=== PATIENT | female | born 1990 | race Caucasian/White ===

== ENCOUNTER 2016-07-15 21:30 | Emergency (ER) | payer OTHER ==
[~2016-07-15] VITALS: Ht 162.6 cm; Wt 91.2 kg
[2016-07-15 21:38] VITALS: BP 122/69
--- NOTE | 2016-07-15 21:44 | NUR ---
PT TAKEN TO BED 8
--- NOTE | 2016-07-15 21:45 | NUR ---
PT C/O RIGHT KNEE PAIN
--- NOTE | 2016-07-15 21:59 | NUR ---
PT RETURN FROM XRAY
--- NOTE | 2016-07-15 22:07 | NUR ---
Dr. Chua evaluating patient at bedside.
[2016-07-15] MEDS ORDERED: HYDROcodone/APAP 5/325 MG 1 TAB TAB PO ONE (22:10)
[2016-07-15] MEDS ORDERED: KETOROLAC 30 MG/ML VIAL IM ONE (22:10)
--- NOTE | 2016-07-15 22:24 | NUR ---
Patient discharged with v/s stable. Written and verbal after care instructions given and explained. Patient alert, oriented and verbalized understanding of instructions. Ambulatory with steady gait. All questions addressed prior to discharge. ID band removed. Patient advised to follow up with PMD. Rx of Tylenol #3, Naprosyn 500mg given. Patient educated on indication of medication including possible reaction and side effects. Opportunity to ask questions provided and answered.
[2016-07-15 22:57] VITALS: BP 121/68
== END 2016-07-15 22:27 | disposition home or self-care (01) ==
LOC: MED 21:30
DX: M76.51 Patellar tendinitis, right knee (principal)
CPT/HCPCS: 29505; 73562; 96372; 99284; J1885

== ENCOUNTER 2017-02-17 13:08 | Emergency (ER) | payer OTHER ==
[~2017-02-17] VITALS: Ht 162.6 cm; Wt 89.4 kg
[2017-02-17 13:15] VITALS: BP 134/69
[2017-02-17 15:29] LABS: BASOPHILS # (AUTO) 0.2 K/uL (0.00-0.22); BASOPHILS % (AUTO) 2.2 % (0.0-2.0); EOSINOPHILS # (AUTO) 0.3 K/uL (0-0.4); EOSINOPHILS % (AUTO) 3.5 % (0.0-4.0); HEMATOCRIT 34.1 % (36-48); HEMOGLOBIN 11.5 g/dL (12.0-16.0); LYMPHOCYTES % (AUTO) 34.2 % (20.5-51.1); MEAN CORPUSCULAR HEMOGLOBIN 28 pg (27-31); MEAN CORPUSCULAR HGB CONC 34 g/dL (33-37); MEAN CORPUSCULAR VOLUME 83 fL (80-94); MONOCYTES # (AUTO) 0.6 K/uL (0.8-1.0); MONOCYTES % (AUTO) 6.7 % (1.7-9.3); NEUTROPHILS # (AUTO) 4.7 K/uL (1.8-7.7); NEUTROPHILS % (AUTO) 53.4 % (42.2-75.2); PLATELET COUNT (AUTO) 314 K/uL (140-450); RED BLOOD CELL COUNT(AUTO) 4.11 MIL/uL (4.20-5.40); RED CELL DISTRIBUTION WIDTH 12.8 % (11.6-13.7); WHITE BLOOD COUNT (AUTO) 8.8 K/uL (4.8-10.8)
--- NOTE | 2017-02-17 15:50 | NUR ---
STOOD IN FOR LAVELLE LUCERO DURING PELVIC EXAM
[2017-02-17] MEDS ORDERED: KETOROLAC 60 MG/2 ML VIAL IM ONE (16:30)
--- NOTE | 2017-02-17 16:41 | NUR ---
Patient discharged with v/s stable. Written and verbal after care instructions given and explained. Patient verbalized understanding. Ambulatory with steady gait. All questions addressed prior to discharge. Advised to follow up with PMD.
[2017-02-17 16:47] VITALS: BP 118/65
== END 2017-02-17 16:41 | disposition home or self-care (01) ==
LOC: MED 13:08
DX: N93.8 Other specified abnormal uterine and vaginal bleeding (principal); N94.6 Dysmenorrhea, unspecified
CPT/HCPCS: 36415; 76830; 84702; 85025; 96372; 99285; J1885

== ENCOUNTER 2017-05-12 18:49 | Emergency (ER) | payer OTHER ==
[~2017-05-12] VITALS: Ht 167.6 cm; Wt 89.9 kg
[2017-05-12 19:04] VITALS: BP 123/67
--- NOTE | 2017-05-12 20:15 | NUR ---
PT IS 26 YEARS OLD FEMALE. CHIEF COMPLAIN WITH CRAMPING SUPRAPUBIC PAIN RADIATED TO LOW BACK PAIN 6/10 X 1 DAY. NO PAIN WITH URINATION.PT STATED HER URINE IS CLEAR, YELLOW. PT REPORT SHE HAD POSITIVE RESULT FOR TEST. ER DR MEJIA. WILL CONTINUE TO MONITOR.
[2017-05-12] MEDS ORDERED: NACL 0.9% 1,000 ML IV ONE (20:25)
[2017-05-12] MEDS ORDERED: MORPHINE SULFATE 4 MG/ML SYR IVP ONE (20:25)
[2017-05-12 20:59] LABS: BASOPHILS # (AUTO) 0.2 K/uL (0.00-0.22); BASOPHILS % (AUTO) 1.4 % (0.0-2.0); EOSINOPHILS # (AUTO) 0.2 K/uL (0-0.4); EOSINOPHILS % (AUTO) 1.5 % (0.0-4.0); HEMATOCRIT 38.1 % (36-48); HEMOGLOBIN 12.4 g/dL (12.0-16.0); LYMPHOCYTES % (AUTO) 25.3 % (20.5-51.1); MEAN CORPUSCULAR HEMOGLOBIN 28 pg (27-31); MEAN CORPUSCULAR HGB CONC 32 g/dL (33-37); MEAN CORPUSCULAR VOLUME 85 fL (80-94); MONOCYTES # (AUTO) 0.7 K/uL (0.8-1.0); MONOCYTES % (AUTO) 6.1 % (1.7-9.3); NEUTROPHILS # (AUTO) 7.7 K/uL (1.8-7.7); NEUTROPHILS % (AUTO) 65.7 % (42.2-75.2); PLATELET COUNT (AUTO) 335 K/uL (140-450); RED BLOOD CELL COUNT(AUTO) 4.47 MIL/uL (4.20-5.40); RED CELL DISTRIBUTION WIDTH 13.7 % (11.6-13.7); WHITE BLOOD COUNT (AUTO) 11.8 K/uL (4.8-10.8)
[2017-05-12 21:40] LABS: ANION GAP 12.2 (8-16); CARBON DIOXIDE 26.6 mmol/L (21-32); CREATININE 0.8 mg/dL (0.6-1.3); POTASSIUM 3.8 mmol/L (3.5-5.1)
[2017-05-12 21:41] LABS: ALBUMIN 3.3 g/dL (3.4-5.0); TOTAL BILIRUBIN 0.1 mg/dL (0.0-1.0)
--- NOTE | 2017-05-12 22:05 | NUR ---
US AT BEDSIDE AT THIS TIME.
[2017-05-12 22:23] LABS: APPEARANCE,URINE CLEAR (CLEAR); BILIRUBIN,URINE NEGATIVE (NEGATIVE); BLOOD, URINE NEGATIVE (NEGATIVE); COLOR,URINE YELLOW (YELLOW); LEUKOCYTE ESTERASE ,URINE NEGATIVE (NEGATIVE); NITRITE, URINE NEGATIVE (NEGATIVE); PH,URINE 5.5 (5.0-9.0); UGLUCOSE NEGATIVE (NEGATIVE)
--- NOTE | 2017-05-12 23:55 | NUR ---
US FOR APPENDIX AT THE BEDSIDE.
[2017-05-13 00:55] VITALS: BP 105/65
== END 2017-05-13 00:40 | disposition home or self-care (01) ==
LOC: MED 18:49
DX: O26.891 Other specified pregnancy related conditions, first trimester (principal); R10.30 Lower abdominal pain, unspecified; M54.9 Dorsalgia, unspecified; Z90.49 Acquired absence of other specified parts of digestive tract
CPT/HCPCS: 36415; 76705; 76801; 80053; 81003; 82150; 83690; 84702; 84703; 85025; 96361; 96374; 99285; J2270; J7030; Q0092

== ENCOUNTER 2017-06-08 19:44 | Emergency (ER) | payer OTHER ==
[~2017-06-08] VITALS: Ht 162.6 cm; Wt 90.3 kg
[2017-06-08 19:50] VITALS: BP 119/80
--- NOTE | 2017-06-08 19:50 | NUR ---
26/F W C/O VAGINAL BLEEDING X 20 MINS AGO, REPORTS "GUSH OF BLOOD" AND ABD CRAMPING, DENIES CLOTS OR ACTIVE BLEEDING AT THIS TIME. 11 WEEKS , . LMP 03/03/17 DENIES PMH/RX/OTC
--- NOTE | 2017-06-08 20:30 | NUR ---
US CALLED, PER RADIOLOGY US ON THE FLOOR AT THIS TIME
[2017-06-08 20:36] LABS: BASOPHILS # (AUTO) 0.2 K/uL (0.00-0.22); BASOPHILS % (AUTO) 1.8 % (0.0-2.0); EOSINOPHILS # (AUTO) 0.2 K/uL (0-0.4); EOSINOPHILS % (AUTO) 1.4 % (0.0-4.0); HEMATOCRIT 34.1 % (36-48); HEMOGLOBIN 11.5 g/dL (12.0-16.0); LYMPHOCYTES # (AUTO) 3.2 K/uL (2.5-16.5); LYMPHOCYTES % (AUTO) 27.4 % (20.5-51.1); MEAN CORPUSCULAR HEMOGLOBIN 29 pg (27-31); MEAN CORPUSCULAR HGB CONC 34 g/dL (33-37); MEAN CORPUSCULAR VOLUME 85.1 fL (80-94); MONOCYTES # (AUTO) 0.6 K/uL (0.8-1.0); MONOCYTES % (AUTO) 5.5 % (1.7-9.3); NEUTROPHILS # (AUTO) 7.6 K/uL (1.8-7.7); NEUTROPHILS % (AUTO) 63.9 % (42.2-75.2); PLATELET COUNT (AUTO) 296 K/uL (140-450); RED BLOOD CELL COUNT(AUTO) 4.01 MIL/uL (4.20-5.40); RED CELL DISTRIBUTION WIDTH 13.6 % (11.6-13.7); WHITE BLOOD COUNT (AUTO) 11.8 K/uL (4.8-10.8)
[2017-06-08 20:49] LABS: APPEARANCE,URINE CLEAR (CLEAR); BILIRUBIN,URINE NEGATIVE (NEGATIVE); BLOOD, URINE 3+ (NEGATIVE); COLOR,URINE YELLOW (YELLOW); LEUKOCYTE ESTERASE ,URINE NEGATIVE (NEGATIVE); NITRITE, URINE NEGATIVE (NEGATIVE); UGLUCOSE NEGATIVE (NEGATIVE)
[2017-06-08 20:51] LABS: ANION GAP 16.7 (8-16); CARBON DIOXIDE 21.7 mmol/L (21-32); CREATININE 0.7 mg/dL (0.6-1.3); POTASSIUM 3.4 mmol/L (3.5-5.1)
[2017-06-08 20:52] LABS: RBC,URINE 20-50 /HPF (0-5); WBC,URINE 0-5 (RARE) /HPF (0-5)
--- NOTE | 2017-06-08 21:00 | NUR ---
Patient appears to be resting comfortably in bed. Vital Signs within normal limits. Respirations even and unlabored. no active bleeding reported
[2017-06-08 21:01] LABS: ALBUMIN 2.8 g/dL (3.4-5.0); TOTAL BILIRUBIN 0.2 mg/dL (0.0-1.0)
[2017-06-08 22:28] VITALS: BP 118/93
[2017-06-11 06:20] LABS: CHLAMYDIA TRACHOMATIS AMP DNA Negative (Negative)
== END 2017-06-08 22:24 | disposition home or self-care (01) ==
LOC: MED 19:44
DX: O20.0 Threatened abortion (principal); E87.6 Hypokalemia; D64.9 Anemia, unspecified; D72.829 Elevated white blood cell count, unspecified; Z3A.11 11 weeks gestation of pregnancy
CPT/HCPCS: 36415; 76817; 80053; 81001; 81025; 84702; 85025; 86900; 86901; 87210; 99285; Q0092; 87491

== ENCOUNTER 2017-06-11 07:25 | Emergency (ER) | payer OTHER ==
[~2017-06-11] VITALS: Ht 162.6 cm; Wt 89.1 kg
[2017-06-11 07:31] VITALS: BP 121/79
--- NOTE | 2017-06-11 07:37 | NUR ---
PT AMBULATED TO BED 1
--- NOTE | 2017-06-11 07:40 | NUR ---
26 YO F BIB self for a recheck for vaginal bleeding. Pt denies vaginal bleeding at this time. Reports no bleeding x 2 days. A&O x 4. GCS 15. Ambulatory w/ steady gait. Pt denies any pain/discomfort at this time. Pt denies having an OB established at this time. Pt educated on importance of Ob checks regulalry throughout the . States she received a referral for an OB on friday. Pt denies taking prenatals at this time. PT educated on the importance of taking prenatals (Folic acid) throughout the , especially the first few weeks of development. AGNES Rivas notified of pt status. Pt needs met at this time. Will continue to monitor. Addendum: [email or web address] 26 [facility] for a recheck for vaginal bleeding. A1. Pt denies vaginal bleeding at this time. Reports no bleeding x 2 days. A&O x 4. GCS 15. Ambulatory w/ steady gait. Pt denies any pain/discomfort at this time. Pt denies having an OB established at this time. Pt educated on importance of Ob checks regulalry throughout the . States she received a referral for an OB on friday. Pt denies taking prenatals at this time. PT educated on the importance of taking prenatals (Folic acid) throughout the , especially the first few weeks of development. AGNES Rivas notified of pt status. Pt needs met at this time. Will continue to monitor.
--- NOTE | 2017-06-11 08:04 | NUR ---
Patient discharged with v/s stable. Written and verbal after care instructions given and explained. Patient alert, oriented and verbalized understanding of instructions. Ambulatory with steady gait. All questions addressed prior to discharge. ID band removed. Patient advised to follow up with PMD. Rx of Prenatals given. Patient educated on indication of medication including possible reaction and side effects. Opportunity to ask questions provided and answered.
[2017-06-11 08:08] VITALS: BP 121/79
== END 2017-06-11 08:04 | disposition home or self-care (01) ==
LOC: MED 07:25
DX: Z34.01 Encounter for supervision of normal first pregnancy, first trimester (principal)
CPT/HCPCS: 81002; 81025; 99282

== ENCOUNTER 2017-07-01 21:26 | Emergency (ER) | payer OTHER ==
[~2017-07-01] VITALS: Ht 162.6 cm; Wt 92.1 kg
[2017-07-01 21:37] VITALS: BP 118/63
--- NOTE | 2017-07-01 21:50 | NUR ---
PATIENT PRESENTS TO ED WITH C/O VAGINAL BLEEDING X 2 DAYS. ABDOMINAL PAIN SINCE FRIDAY. PT.A1 IUP 14 WKS. DENIES MED HX. PT DENIES N/V/D; SKIN IS PINK/WARM/DRY; AAOX4 WITH EVEN AND STEADY GAIT; LUNGS CLEAR BL; HR EVEN AND REGULAR; PT DENIES ANY FEVER, CP, SOB, OR COUGH AT THIS TIME; PATIENT STATES PAIN OF 7/10 AT THIS TIME; VSS; PATIENT POSITIONED FOR COMFORT; HOB ELEVATED; BEDRAILS UP X2; BED DOWN. ER MD MADE AWARE OF PT STATUS.
[2017-07-01 21:53] LABS: BASOPHILS # (AUTO) 0.1 K/uL (0.00-0.22); BASOPHILS % (AUTO) 0.9 % (0.0-2.0); EOSINOPHILS # (AUTO) 0.2 K/uL (0-0.4); EOSINOPHILS % (AUTO) 1.6 % (0.0-4.0); HEMATOCRIT 33.2 % (36-48); HEMOGLOBIN 11.2 g/dL (12.0-16.0); LYMPHOCYTES % (AUTO) 27.5 % (20.5-51.1); MEAN CORPUSCULAR HEMOGLOBIN 29 pg (27-31); MEAN CORPUSCULAR HGB CONC 34 g/dL (33-37); MEAN CORPUSCULAR VOLUME 84.2 fL (80-94); MONOCYTES # (AUTO) 0.7 K/uL (0.8-1.0); MONOCYTES % (AUTO) 6.2 % (1.7-9.3); NEUTROPHILS % (AUTO) 63.8 % (42.2-75.2); PLATELET COUNT (AUTO) 310 K/uL (140-450); RED BLOOD CELL COUNT(AUTO) 3.94 MIL/uL (4.20-5.40); RED CELL DISTRIBUTION WIDTH 14.1 % (11.6-13.7); WHITE BLOOD COUNT (AUTO) 10.9 K/uL (4.8-10.8)
[2017-07-01 21:59] LABS: ANION GAP 15.6 (8-16); CARBON DIOXIDE 20.7 mmol/L (21-32); CREATININE 0.6 mg/dL (0.6-1.3); POTASSIUM 3.3 mmol/L (3.5-5.1)
--- NOTE | 2017-07-01 22:22 | NUR ---
PT TAKEN TO ULTRASOUND FROM [facility]
--- NOTE | 2017-07-01 22:36 | NUR ---
PT RETURN FROM ULTRASOUND TO BED 11
[2017-07-01 23:08] LABS: APPEARANCE,URINE SL CLOUDY (CLEAR); BILIRUBIN,URINE NEGATIVE (NEGATIVE); BLOOD, URINE TRACE-I (NEGATIVE); COLOR,URINE YELLOW (YELLOW); LEUKOCYTE ESTERASE ,URINE TRACE (NEGATIVE); NITRITE, URINE NEGATIVE (NEGATIVE); UGLUCOSE NEGATIVE (NEGATIVE)
[2017-07-01 23:22] LABS: RBC,URINE 3-10 (FEW) /HPF (0-5)
[2017-07-01] MEDS ORDERED: ACETAMINOPHEN EXTRA STRENGTH 500 MG TAB PO ONE (23:30)
[2017-07-01 23:59] VITALS: BP 122/71
--- NOTE | 2017-07-01 23:59 | NUR ---
Patient discharged with v/s stable. Written and verbal after care instructions given and explained. Patient alert, oriented and verbalized understanding of instructions. Ambulatory with steady gait. All questions addressed prior to discharge. ID band removed. Patient advised to follow up with PMD. Rx of TYLENOL 500MG AND MACROBID given. Patient educated on indication of medication including possible reaction and side effects. Opportunity to ask questions provided and answered.
== END 2017-07-01 23:59 | disposition home or self-care (01) ==
LOC: MED 21:26
DX: O23.42 Unspecified infection of urinary tract in pregnancy, second trimester (principal); O26.892 Other specified pregnancy related conditions, second trimester; R10.9 Unspecified abdominal pain; Z3A.15 15 weeks gestation of pregnancy
CPT/HCPCS: 36415; 76801; 80048; 81001; 81025; 84702; 85025; 86900; 86901; 87086; 99285

== ENCOUNTER 2017-12-26 09:50 | Emergency (ER) | payer MEDICAID ==
[~2017-12-26] VITALS: Ht 162.6 cm; Wt 87.8 kg
[2017-12-26 09:57] VITALS: BP 120/69
[2017-12-26 10:00] VITALS: BP 120/69
--- NOTE | 2017-12-26 10:01 | NUR ---
PT AMBULATES TO BED 6
--- NOTE | 2017-12-26 10:05 | NUR ---
27Y/F BIB SELF FOR WOUND RECEHCK. PT REPORTS THAT SHE WAS SEEN HERE ON FRIDAY AND HAD A CYST DRAINED FROM BETWEEN HER RIGHT THIGH AND PUBIC AREA. PT REPORTS THAT SHE FOLLOWED UP WITH HER PMD. PT STATES THAT HERE IN ER PACKING WAS PLACED IN THE CYST. PMD UNSURE IF THERE WAS PACKING, REFERRED HER BACK. PT IS AAOX4, VSS, BED DOWN, ER MD AWARE AND NOTIFIED OF PT STATUS. HX; DENIES RX; VICODIN
--- NOTE | 2017-12-26 10:18 | NUR ---
Patient being evaluated by physician at bedside.
--- NOTE | 2017-12-26 10:31 | NUR ---
PATIENT DISCHARGED. PATIENT LEFT WITHOUT DISCHARGE INSTRUCTIONS. ERMD AWARE
== END 2017-12-26 10:31 | disposition home or self-care (01) ==
LOC: MED 09:50
DX: Z48.01 Encounter for change or removal of surgical wound dressing (principal)
CPT/HCPCS: 99283

== ENCOUNTER 2018-08-23 01:40 | Emergency (ER) | payer MEDICAID ==
[~2018-08-23] VITALS: Ht 162.6 cm; Wt 84.8 kg
[2018-08-23 01:56] VITALS: BP 118/70
--- NOTE | 2018-08-23 01:59 | NUR ---
PT TAKEN TO LOBBY TO WAIT FOR AVAILABLE BED.
--- NOTE | 2018-08-23 02:39 | NUR ---
PT AMBULATED TO BED 05
--- NOTE | 2018-08-23 02:49 | NUR ---
28 YO F BIB SELF PRESENTS TO ED C/O 09/16 THROBBING RIGHT KNEE PAIN THAT SHOOTS INTO LOWER LEG AND SWELLING X 2 DAYS. PT STATES SHE HAS "ALWAYS HAD PROBLEMS" WITH RIGHT KNEE SINCE CHILDHOOD FROM POSSIBLE SOCCER INJURY. NO SURGERIES. DENIES RECENT TRAUMA OR INJURY. REPORTS DIFFICULTY SLEEPING AND AMBULATING. SHE STATES SHE IS UNABLE TO BEAR WEIGHT ON AFFECTED LEG. -- PT AWAKE, ALERT. CALM, COMFORTABLE, COOPERATIVE. -- SKIN PINK, WARM, DRY. BREATHING EVEN, UNLABORED. -- MODERATE SWELLING NOTED TO RIGHT KNEE. NO BRUISING, DISCOLORATION, GROSS TRAUMA NOTED. PMH-- DENIES RX-- ALTERNATING BETWEEN TYLENOL AND MOTRIN WITH NO RELIEF.
[2018-08-23] MEDS ORDERED: KETOROLAC 30 MG/ML VIAL IM ONE (03:50)
[2018-08-23 04:20] VITALS: BP 115/68
== END 2018-08-23 04:20 | disposition home or self-care (01) ==
LOC: MED 01:40
DX: M25.561 Pain in right knee (principal)
CPT/HCPCS: 73562; 96372; 99283; J1885

== ENCOUNTER 2020-04-03 19:45 | Emergency (ER) | payer MEDICAID ==
[~2020-04-03] VITALS: Ht 162.6 cm; Wt 86.7 kg
[2020-04-03 19:50] VITALS: BP 119/70
[2020-04-03] MEDS ORDERED: AZITHROMYCIN 250 MG TAB PO ONE (20:30)
[2020-04-03] MEDS ORDERED: cefTRIAXone 1,000 MG in LIDOCAINE MPF 1% 2.1 ML IM ONE (20:30)
[2020-04-03] MEDS ORDERED: traMADol 50 MG TAB PO ONE (20:30)
[2020-04-03] MEDS ORDERED: cefTRIAXone 1,000 MG VIAL ONE (20:40)
[2020-04-03] MEDS ORDERED: LIDOCAINE MPF 1% 10 MG/ML VIAL INJ ONE (20:45)
[2020-04-03 20:49] LABS: APPEARANCE,URINE CLEAR (CLEAR); BILIRUBIN,URINE NEGATIVE (NEGATIVE); BLOOD, URINE 3+ (NEGATIVE); COLOR,URINE YELLOW (YELLOW); LEUKOCYTE ESTERASE ,URINE NEGATIVE (NEGATIVE); NITRITE, URINE NEGATIVE (NEGATIVE); PH,URINE 5.5 (5.0-9.0); UGLUCOSE NEGATIVE (NEGATIVE)
[2020-04-03 21:09] LABS: RBC,URINE 11-20 (MOD) /HPF (0-5); WBC,URINE 0-5 /HPF (0-5)
[2020-04-03 21:16] VITALS: BP 119/70
== END 2020-04-03 21:09 | disposition home or self-care (01) ==
LOC: MED 19:45
DX: R10.2 Pelvic and perineal pain (principal); R11.0 Nausea; R63.0 Anorexia
CPT/HCPCS: 36415; 81001; 87491; 96372; 99283; J0696; J2001

== ENCOUNTER 2020-09-20 17:19 | Emergency (ER) | payer MEDICAID, OTHER ==
[~2020-09-20] VITALS: Ht 162.6 cm; Wt 80.7 kg
[2020-09-20 17:55] VITALS: BP 129/70
--- NOTE | 2020-09-20 17:58 | NUR ---
to lobby a/w bed via wheelchair
[2020-09-20] MEDS ORDERED: NAPR-54 PO (19:33)
[2020-09-20] MEDS ORDERED: ACET-10509 PO (19:33)
--- NOTE | 2020-09-20 19:34 | NUR ---
PATIENT SEEN BY ERMD BY KASSIE Nye FOR MEDICAL EVALUATION.
[2020-09-20 19:40] VITALS: BP 122/68
--- NOTE | 2020-09-20 19:40 | NUR ---
Patient discharged with v/s stable. Written and verbal after care instructions given and explained. Patient alert, oriented and verbalized understanding of instructions. Ambulatory with steady gait. All questions addressed prior to discharge. ID band removed. Patient advised to follow up with PMD. Rx of TYLENOL EXTRA STRENGTH, NAPROXEN given. Patient educated on indication of medication including possible reaction and side effects. Opportunity to ask questions provided and answered.
== END 2020-09-20 19:40 | disposition home or self-care (01) ==
LOC: MED 17:19
DX: S83.91XA Sprain of unspecified site of right knee, initial encounter (principal); W19.XXXA Unspecified fall, initial encounter; Y93.9 Activity, unspecified; Y92.89 Other specified places as the place of occurrence of the external cause; Y99.8 Other external cause status
CPT/HCPCS: 73562; 99283

== ENCOUNTER 2021-10-16 12:52 | Emergency (ER) | payer OTHER ==
[~2021-10-16] VITALS: Ht 162.6 cm; Wt 88.0 kg
[~2021-10-16 12:52] MED LIST: ACET-10509 PO; NAPR-54 PO
[2021-10-16 12:55] VITALS: BP 127/74
--- NOTE | 2021-10-16 13:03 | NUR ---
[facility]. HANDED ON URINE CUP.
[2021-10-16] MEDS ORDERED: KETOROLAC 30 MG/ML VIAL IVP ONE (13:15)
[2021-10-16] MEDS ORDERED: NACL 0.9% 1,000 ML IV ONE (13:15)
[2021-10-16] MEDS ORDERED: ONDANSETRON 4 MG/2 ML VIAL IVP ONE (13:15)
--- NOTE | 2021-10-16 13:20 | NUR ---
PT AMB TO BED 3.
--- NOTE | 2021-10-16 13:23 | NUR ---
31 y/o female, c/o ruq pain that radiates to mid and lower back, started 5 days ago. pt states she also has nausea, subjective fever, and loss of appetite. abd quadrants x4 normoactive, flat/soft/tender/guarding. skin is pink/warm/dry. a&o x4 with even and steady gait. lungs clear bl, heart rate even and regular. pt denies dysuria, hematuria, urinary frequency or retention, or anyone sick in the household with the same symptoms. pt denies any cp, sob, or cough at this time. pt states pain is 9/10 at this time. patient positioned for comfort. hob elevated. bed down. ermd made aware of pt. pmh: cholecystectomy nka med: advil (some relief)
--- NOTE | 2021-10-16 13:50 | NUR ---
Ultrasound at bedside.
[2021-10-16 13:55] LABS: BASOPHILS % (AUTO) 0.4 % (0.0-2.0); EOSINOPHILS # (AUTO) 0.1 K/uL (0-0.4); EOSINOPHILS % (AUTO) 1.2 % (0.0-4.0); HEMATOCRIT 36.2 % (36-48); HEMOGLOBIN 12.3 g/dL (12.0-16.0); LYMPHOCYTES # (AUTO) 2.1 K/uL (2.5-16.5); LYMPHOCYTES % (AUTO) 20.2 % (20.5-51.1); MEAN CORPUSCULAR HEMOGLOBIN 29 pg (27-31); MEAN CORPUSCULAR HGB CONC 34 g/dL (33-37); MEAN CORPUSCULAR VOLUME 83.9 fL (80-94); MONOCYTES # (AUTO) 0.7 K/uL (0.8-1.0); MONOCYTES % (AUTO) 6.8 % (1.7-9.3); NEUTROPHILS # (AUTO) 7.5 K/uL (1.8-7.7); NEUTROPHILS % (AUTO) 71.4 % (42.2-75.2); PLATELET COUNT (AUTO) 396 K/uL (140-450); RED BLOOD CELL COUNT(AUTO) 4.31 MIL/uL (4.20-5.40); RED CELL DISTRIBUTION WIDTH 13.3 % (11.6-13.7); WHITE BLOOD COUNT (AUTO) 10.5 K/uL (4.8-10.8)
[2021-10-16 14:11] LABS: ALBUMIN 3.4 g/dL (3.4-5.0); ANION GAP 10.2 (8-16); CARBON DIOXIDE 29.2 mmol/L (21-32); CREATININE 0.9 mg/dL (0.6-1.3); POTASSIUM 3.4 mmol/L (3.5-5.1); TOTAL BILIRUBIN 0.5 mg/dL (0.0-1.0)
[2021-10-16 15:01] LABS: APPEARANCE,URINE CLEAR (CLEAR); BILIRUBIN,URINE NEGATIVE (NEGATIVE); BLOOD, URINE NEGATIVE (NEGATIVE); COLOR,URINE YELLOW (YELLOW); LEUKOCYTE ESTERASE ,URINE TRACE (NEGATIVE); NITRITE, URINE NEGATIVE (NEGATIVE); UGLUCOSE NEGATIVE (NEGATIVE)
--- NOTE | 2021-10-16 15:13 | NUR ---
Patient appears to be resting comfortably in bed. Vital Signs within normal limits. Respirations even and unlabored.
[2021-10-16 15:17] LABS: OTHER CASTS, URINE None Seen /LPF (None Seen); RBC,URINE 0-5 /HPF (0-5); WBC,URINE 0-5 /HPF (0-5)
[2021-10-16] MEDS ORDERED: IBUP-2213 PO (15:43)
[2021-10-16] MEDS ORDERED: FAMO-90 PO (15:43)
[2021-10-16] MEDS ORDERED: ACET-10509 PO (15:43)
[2021-10-16 16:38] VITALS: BP 97/51
--- NOTE | 2021-10-16 16:39 | NUR ---
Patient discharged with v/s stable. Written and verbal after care instructions given and explained. Patient alert, oriented and verbalized understanding of instructions. Ambulatory with steady gait. All questions addressed prior to discharge. ID band removed. Patient advised to follow up with PMD. Opportunity to ask questions provided and answered.
== END 2021-10-16 13:20 | disposition home or self-care (01) ==
LOC: MED 12:52
DX: R10.13 Epigastric pain (principal); R10.11 Right upper quadrant pain; Z90.49 Acquired absence of other specified parts of digestive tract
CPT/HCPCS: 36415; 76705; 80053; 81001; 81025; 83690; 85025; 96361; 96374; 96375; 99284; J1885; J2405; Q0092; J7030

== ENCOUNTER 2021-10-22 11:32 | Emergency (ER) | payer OTHER ==
[~2021-10-22] VITALS: Ht 162.6 cm; Wt 87.1 kg
[~2021-10-22 11:32] MED LIST changes: +FAMO-90 PO; +IBUP-2213 PO
[2021-10-22 11:48] VITALS: BP 122/85
[2021-10-22] MEDS ORDERED: NACL 0.9% 1,000 ML IV ONE (12:25)
[2021-10-22] MEDS ORDERED: KETOROLAC 30 MG/ML VIAL IM ONE (12:25)
--- NOTE | 2021-10-22 13:12 | NUR ---
31/F PRESENTS TO ED WITH C/O RUQ PAIN AND RIGHT SIDED FLANK PAIN SINCE YESTERDAY. PATIENT STATES BEING SEEN HERE ONE WEEK AGO WITH SAME SYMPTOMS AND WAS D/C HOME. PATIENT DENIES N/V/D, REPORTS SHE HAD A TEMP OF 102 LAST NIGHT WHICH SHE TOOK TYLENOL FOR. TEMP 98.9 ORAL UPON ARRIVAL TO ED.
[2021-10-22 13:14] LABS: BASOPHILS % (AUTO) 0.2 % (0.0-2.0); EOSINOPHILS % (AUTO) 0.4 % (0.0-4.0); HEMATOCRIT 34.5 % (36-48); HEMOGLOBIN 11.7 g/dL (12.0-16.0); LYMPHOCYTES # (AUTO) 1.3 K/uL (2.5-16.5); LYMPHOCYTES % (AUTO) 9.9 % (20.5-51.1); MEAN CORPUSCULAR HEMOGLOBIN 29 pg (27-31); MEAN CORPUSCULAR HGB CONC 34 g/dL (33-37); MEAN CORPUSCULAR VOLUME 84.3 fL (80-94); MONOCYTES # (AUTO) 0.8 K/uL (0.8-1.0); MONOCYTES % (AUTO) 6.3 % (1.7-9.3); NEUTROPHILS # (AUTO) 10.7 K/uL (1.8-7.7); NEUTROPHILS % (AUTO) 83.2 % (42.2-75.2); PLATELET COUNT (AUTO) 380 K/uL (140-450); RED BLOOD CELL COUNT(AUTO) 4.09 MIL/uL (4.20-5.40); RED CELL DISTRIBUTION WIDTH 13.3 % (11.6-13.7); WHITE BLOOD COUNT (AUTO) 12.8 K/uL (4.8-10.8)
[2021-10-22 13:35] LABS: ALBUMIN 3.3 g/dL (3.4-5.0); ANION GAP 14.7 (8-16); CARBON DIOXIDE 23.6 mmol/L (21-32); POTASSIUM 3.3 mmol/L (3.5-5.1); TOTAL BILIRUBIN 0.6 mg/dL (0.0-1.0)
[2021-10-22 14:08] LABS: APPEARANCE,URINE CLEAR (CLEAR); BILIRUBIN,URINE NEGATIVE (NEGATIVE); BLOOD, URINE TRACE-I (NEGATIVE); COLOR,URINE YELLOW (YELLOW); LEUKOCYTE ESTERASE ,URINE NEGATIVE (NEGATIVE); NITRITE, URINE NEGATIVE (NEGATIVE); UGLUCOSE NEGATIVE (NEGATIVE)
[2021-10-22 14:28] VITALS: BP 110/61
== END 2021-10-22 14:28 | disposition home or self-care (01) ==
LOC: MED 11:32
DX: R10.11 Right upper quadrant pain (principal); Z90.49 Acquired absence of other specified parts of digestive tract
CPT/HCPCS: 36415; 74176; 80053; 81003; 81025; 83690; 85025; 96360; 96372; 99284; J1885; J7030

== ENCOUNTER 2022-12-16 13:25 | Emergency (ER) | payer OTHER ==
[~2022-12-16] VITALS: Ht 162.6 cm; Wt 90.7 kg
[2022-12-16 13:48] VITALS: BP 121/79; PULSE 100; RESP 18; TEMP 97.8; O2SAT 97
[2022-12-16] MEDS ORDERED: KETOROLAC 60 MG/2 ML VIAL IM ONE (15:10)
[2022-12-16] MEDS ORDERED: ONDANSETRON 4 MG ODT PO ONE (15:10)
[2022-12-16] MEDS ORDERED: IBUP-2213 PO (15:23)
[2022-12-16] MEDS ORDERED: ONDA8TAB87 PO (15:23)
[2022-12-16] MEDS ORDERED: ACET-8905 PO ×2 (15:23→15:24)
== END 2022-12-16 15:33 | disposition home or self-care (01) ==
LOC: MED 13:25
DX: R10.9 Unspecified abdominal pain (principal); R11.2 Nausea with vomiting, unspecified; R19.7 Diarrhea, unspecified; Z90.49 Acquired absence of other specified parts of digestive tract; Z98.890 Other specified postprocedural states; Z79.899 Other long term (current) drug therapy; Z79.1 Long term (current) use of non-steroidal anti-inflammatories (NSAID)
CPT/HCPCS: 81002; 81025; 99283